=== PATIENT | male | born 1990 | race Two or more races ===

== ENCOUNTER 2016-10-03 05:02 | Emergency (ER) | payer OTHER ==
[~2016-10-03] VITALS: Ht 188 cm; Wt 61.2 kg
[~2016-10-03 05:02] MED LIST: ADDERALL; KLONOPIN
--- NOTE | 2016-10-03 05:20 | NUR ---
Pt c/o left wrist weakness. Pt seen by MD. Splint applied. Pos CMS. PT stable for discharge per MD. Pt given ACI. Pt verbalized understanding of dc instructions.Pt ambulated out of er with steady gait.
[2016-10-03 05:43] VITALS: BP 111/85
== END 2016-10-03 05:20 | disposition home or self-care (01) ==
LOC: ER 05:02
DX: G56.90 Unspecified mononeuropathy of unspecified upper limb (principal); F17.200 Nicotine dependence, unspecified, uncomplicated
CPT/HCPCS: A4663